=== PATIENT | male | born 1965 | race African-American/Black ===

== ENCOUNTER 2018-06-23 11:17 | Emergency (ER) | payer MEDICAID ==
[~2018-06-23] VITALS: Ht 167.6 cm; Wt 67.0 kg
[2018-06-23] MEDS ORDERED: LORA10CA PO (11:44)
[2018-06-23] MEDS ORDERED: IPRATROPIUM BROMIDE (0.02%) 0.5MG/2.5ML NEB HHN STA (14:38)
[2018-06-23] MEDS ORDERED: ALBUTEROL (0.083%) 2.5MG/3ML NEB HHN STA (14:38)
[2018-06-23 16:07] VITALS: BP 129/62
== END 2018-06-23 16:09 | disposition home or self-care (01) ==
LOC: ER 11:17
DX: J06.9 Acute upper respiratory infection, unspecified (principal); J40 Bronchitis, not specified as acute or chronic
CPT/HCPCS: 71046; 93005; 99283; J7611